=== PATIENT | male | born 1945 | race Caucasian/White ===

== ENCOUNTER → 2019-09-04 13:55 | Outpatient (BNVA) | payer MEDICARE, MEDICAID, SELFPAY | PROVIDERS: Family Provider Family Medicine; PCP Family Medicine; Referring Provider Family Medicine; Visit Provider Family Medicine | DX: R06.02 Shortness of breath (principal); Z95.1 Presence of aortocoronary bypass graft | CPT/HCPCS: 71046; 80053; 83880; 84145; 85025 ==

== ENCOUNTER 2019-10-14 06:00 | Outpatient (RCR) | payer MEDICARE, MEDICAID, SELFPAY | END 2019-10-18 23:59 | disposition home or self-care (01) | LOC: SOT 06:00 | PROVIDERS: Family Provider Family Medicine; PCP Family Medicine; Referring Provider Family Medicine; Visit Provider Family Medicine | DX: Z74.09 Other reduced mobility (principal); J44.9 Chronic obstructive pulmonary disease, unspecified; Z95.5 Presence of coronary angioplasty implant and graft; I25.10 Atherosclerotic heart disease of native coronary artery without angina pectoris; I50.9 Heart failure, unspecified; Z95.3 Presence of xenogenic heart valve | CPT/HCPCS: 97167; 97530 ==

== ENCOUNTER 2020-07-07 12:03 | Outpatient (CLI) | payer MEDICARE, MEDICAID, SELFPAY ==
--- NOTE | 2020-07-07 12:45 | USCV_ITS ---
Wesley Rodrigues Age: 75 Gender: M : 1945 Exam Date: 07/07/2020 13:11 Ordering Phys: Edgard Ruelas M.D ([email or web address]) Technologist: Ayana Cope [place] [facility] [place]: SOB BP: 118 / 58 HR: 53 Rhythm: Sinus Technical Quality: Adequate MEASUREMENTS (Male / Female) Normal Values 2D ECHO LV Diastolic Diameter PLAX 2.9 cm 4.2 - 5.9 / 3.9 - 5.3 cm LV Systolic Diameter PLAX 1.7 cm LV Chamber Size 3.3 cm IVS Diastolic Thickness 1.6 cm 0.6 - 1.0 / 0.6 - 0.9 cm IVS Systolic Thickness 2.1 cm LVPW Diastolic Thickness 2.3 cm 0.6 - 1.0 / 0.6 - 0.9 cm LVPW Systolic Thickness 2.2 cm RV Chamber Size 2.5 cm LVOT Diameter 2.0 cm LV Ejection Fraction 2D Teich 76.8 % LV Ejection Fraction MOD 2C 51.3 % LV Ejection Fraction 2C AL 53.4 % LA Diameter 4.3 cm LA Width 3.5 cm LA Height 5.5 cm RA Width 4.4 cm RA Height 3.8 cm M-MODE LV Diastolic Diameter MM 6.0 cm 4.2 - 5.9 / 3.9 - 5.3 cm LV Systolic Diameter MM 4.7 cm LV Ejection Fraction MM Teich 43.2 % IVS Diastolic Thickness MM 1.1 cm 0.6 - 1.0 / 0.6 - 0.9 cm IVS Systolic Thickness MM 1.5 cm LVPW Diastolic Thickness MM 1.2 cm 0.6 - 1.0 / 0.6 - 0.9 cm LVPW Systolic Thickness MM 1.4 cm Aortic Annulus Diameter 2.4 cm LA Ao Ratio MM 2.0 MV E Point Septal Separation 0.5 cm DOPPLER AV Peak Velocity 177.0 cm/s LVOT Peak Velocity 108.0 cm/s AV Area Cont Eq vti 2.1 cm squared AV Area Cont Eq pk 2.0 cm squared MV Area PHT 2.1 cm squared Mitral E to A Ratio 0.9 MV E' Velocity 63.0 cm/s Mitral E to MV E' Ratio 18.1 Mitral E to LV E' Lateral Ratio 16.8 Mitral E to LV E' Septal Ratio 19.5 TR Peak Velocity 136.0 cm/s TR Peak Gradient 7.4 mmHg Right Atrial Pressure 3.0 mmHg Pulmonary Artery Systolic Pressu 10.4 mmHg PV Peak Velocity 77.0 cm/s RV Acceleration Time 0.1 s RV Ejection Time 0.4 s RV AcT/ET 0.3 FINDINGS Left Ventricle Normal left ventricular size and systolic function with no regional wall motion abnormalities. LVEF is 50 to 55%. Grade 1 diastolic dysfunction is present. Right Ventricle The right ventricle is normal in size and function. Right Atrium The right atrium is normal in size. Left Atrium The left atrium is normal in size. Mitral Valve Mild mitral annular calcification is noted. No significant stenosis is present. There is no mitral regurgitation. Aortic Valve There is a bioprosthetic aortic valve. It is not well- visualized. There is no significant aortic stenosis or regurgitation noted. Tricuspid Valve Structurally normal tricuspid valve without significant stenosis or regurgitation. Insufficient TR jet to calculate RVSP. Pulmonic Valve Structurally normal pulmonic valve without significant stenosis. There is no pulmonic regurgitation. Pericardium Normal pericardium without effusion. Aorta Normal ascending aorta dimension. CONCLUSIONS LV systolic function is normal with a EF of 50 to 55%. Grade 1 diastolic dysfunction is noted. Bioprosthetic aortic valve is not well-visualized. However based on Doppler data, no significant stenosis or regurgitation is noted. Compared to prior study from 04/12/2018, no significant changes are noted. Edgard Ruelas MD (Electronically Signed) Final Date: 18 July 2020 16:19 S
== END 2020-07-07 12:04 | disposition home or self-care (01) ==
LOC: RAD 12:16
PROVIDERS: PCP Family Medicine Adult Medicine; Visit Provider Internal Medicine
DX: R06.02 Shortness of breath (principal)
CPT/HCPCS: 93306

== ENCOUNTER → 2020-07-08 11:07 | Outpatient (BNVA) | payer MEDICARE, MEDICAID, SELFPAY | PROVIDERS: PCP Family Medicine Adult Medicine; Visit Provider Family Medicine Adult Medicine | DX: I25.5 Ischemic cardiomyopathy (principal); E66.9 Obesity, unspecified; I48.91 Unspecified atrial fibrillation; N18.9 Chronic kidney disease, unspecified; I50.9 Heart failure, unspecified; Z95.1 Presence of aortocoronary bypass graft; I25.10 Atherosclerotic heart disease of native coronary artery without angina pectoris; J44.9 Chronic obstructive pulmonary disease, unspecified; I13.0 Hypertensive heart and chronic kidney disease with heart failure and stage 1 through stage 4 chronic kidney disease, or unspecified chronic kidney disease; Z68.31 Body mass index [BMI] 31.0-31.9, adult; F17.211 Nicotine dependence, cigarettes, in remission | CPT/HCPCS: 80053; 80061; 84153; 84443; 85025 ==

== ENCOUNTER → 2020-12-02 11:18 | Outpatient (BNVA) | payer MEDICARE, MEDICAID, SELFPAY | PROVIDERS: PCP Family Medicine Adult Medicine; Visit Provider Family Medicine Adult Medicine | DX: J44.9 Chronic obstructive pulmonary disease, unspecified (principal); E78.5 Hyperlipidemia, unspecified; I50.9 Heart failure, unspecified; N18.9 Chronic kidney disease, unspecified; I25.10 Atherosclerotic heart disease of native coronary artery without angina pectoris; I13.0 Hypertensive heart and chronic kidney disease with heart failure and stage 1 through stage 4 chronic kidney disease, or unspecified chronic kidney disease | CPT/HCPCS: 80053; 80061; 85025 ==

== ENCOUNTER → 2021-05-18 09:49 | Outpatient (BNVA) | payer MEDICARE, MEDICAID, SELFPAY | PROVIDERS: PCP Family Medicine Adult Medicine; Visit Provider Nurse Practitioner Family | DX: I25.10 Atherosclerotic heart disease of native coronary artery without angina pectoris (principal); I25.5 Ischemic cardiomyopathy; R06.02 Shortness of breath | CPT/HCPCS: 80048; 83880 ==

== ENCOUNTER → 2021-06-16 08:29 | Outpatient (BNVA) | payer MEDICARE, MEDICAID, SELFPAY | PROVIDERS: PCP Family Medicine Adult Medicine; Visit Provider Family Medicine Adult Medicine | DX: J43.9 Emphysema, unspecified (principal); I50.9 Heart failure, unspecified; N18.30 Chronic kidney disease, stage 3 unspecified; R79.89 Other specified abnormal findings of blood chemistry; I13.0 Hypertensive heart and chronic kidney disease with heart failure and stage 1 through stage 4 chronic kidney disease, or unspecified chronic kidney disease | CPT/HCPCS: 80053; 83880; 84443; 85025 ==

== ENCOUNTER 2021-08-17 13:33 | Outpatient (CLI) | payer MEDICARE, MEDICAID, SELFPAY ==
--- NOTE | 2021-08-17 14:15 | USCV_ITS ---
Ravi Wesley Age: 76 Gender: M : 1945 Exam Date: 08/17/2021 14:24 Ordering Phys: Edgard Ruelas M.D ([email or web address]) Technologist: An Gan [place] [facility] [place]: PRESENCE OF XENOGENIC HEART VALVE BP: 140 / 70 HR: 61 Rhythm: Sinus Technical Quality: Technically difficult study MEASUREMENTS (Male / Female) Normal Values 2D ECHO LV Diastolic Diameter PLAX 5.3 cm 4.2 - 5.9 / 3.9 - 5.3 cm LV Systolic Diameter PLAX 3.5 cm IVS Diastolic Thickness 1.3 cm 0.6 - 1.0 / 0.6 - 0.9 cm IVS Systolic Thickness 1.9 cm LVPW Diastolic Thickness 1.9 cm 0.6 - 1.0 / 0.6 - 0.9 cm LVPW Systolic Thickness 2.2 cm LVOT Diameter 2.0 cm LV Ejection Fraction 2D Teich 61.3 % LV Ejection Fraction MOD 2C 57.7 % LV Ejection Fraction 2C AL 57.5 % LA Diameter 4.3 cm LA Width 3.6 cm LA Height 5.4 cm RA Width 3.8 cm RA Height 3.9 cm Aorta at Sinotubular Diameter 1.7 cm M-MODE Aortic Annulus Diameter 2.7 cm LA Ao Ratio MM 1.5 MV E Point Septal Separation 1.1 cm DOPPLER AV Peak Velocity 196.7 cm/s LVOT Peak Velocity 83.0 cm/s AV Area Cont Eq vti 1.3 cm squared AV Area Cont Eq pk 1.3 cm squared MV Peak Velocity 140.0 cm/s MV Area PHT 3.5 cm squared Mitral E to A Ratio 0.9 MV E' Velocity 59.5 cm/s Mitral E to MV E' Ratio 18.9 Mitral E to LV E' Lateral Ratio 18.9 Mitral E to LV E' Septal Ratio 18.9 TV Peak E Velocity 37.0 cm/s Right Atrial Pressure 3.0 mmHg PV Peak Velocity 94.0 cm/s RV Acceleration Time 0.1 s RV Ejection Time 0.3 s RV AcT/ET 0.4 FINDINGS Left Ventricle Normal left ventricular size. LV systolic function is normal with EF of 50 to 55%. No regional wall motion abnormalities. Grade 1 diastolic dysfunction Right Ventricle Not well visualized Right Atrium Grossly normal Left Atrium The left atrium is normal in size. Mitral Valve Mild mitral annular calcification is seen without significant stenosis or prolapse. There is mild mitral regurgitation. Aortic Valve There is a bioprosthetic aortic valve which is not well- visualized. Based on Doppler data there is no significant aortic stenosis or regurgitation. DVI of aortic valve is 0.42 Tricuspid Valve Grossly normal without significant regurgitation or stenosis Pulmonic Valve Not visualized Pericardium Normal pericardium without effusion. Aorta Normal ascending aorta dimension. CONCLUSIONS Technically difficult technically limited quality echocardiogram because of poor ultrasonic windows. LV systolic function is normal with EF 50 to 55%. Grade 1 diastolic dysfunction. Mild mitral regurgitation. Bioprosthetic aortic valve is not well-visualized. Based on Doppler data no significant aortic stenosis or regurgitation. Degree of aortic valve is 0.42. Compared to prior echocardiogram from 07/18/2020, no significant changes are seen. Edgard Ruelas MD (Electronically Signed) Final Date: 18 August 2021 11:23 S
== END 2021-08-17 13:34 | disposition home or self-care (01) ==
LOC: RAD 13:36
PROVIDERS: PCP Family Medicine Adult Medicine; Visit Provider Internal Medicine
DX: Z95.3 Presence of xenogenic heart valve (principal); I34.0 Nonrheumatic mitral (valve) insufficiency
CPT/HCPCS: 93306

== ENCOUNTER → 2021-12-13 13:33 | Outpatient (BNVA) | payer MEDICARE, MEDICAID, SELFPAY | PROVIDERS: PCP Family Medicine Adult Medicine; Visit Provider Internal Medicine | DX: R06.09 Other forms of dyspnea (principal); I13.0 Hypertensive heart and chronic kidney disease with heart failure and stage 1 through stage 4 chronic kidney disease, or unspecified chronic kidney disease; N18.30 Chronic kidney disease, stage 3 unspecified; I50.9 Heart failure, unspecified; N17.9 Acute kidney failure, unspecified; I25.119 Atherosclerotic heart disease of native coronary artery with unspecified angina pectoris; Z87.891 Personal history of nicotine dependence; Z95.3 Presence of xenogenic heart valve; Z95.1 Presence of aortocoronary bypass graft; I25.5 Ischemic cardiomyopathy | CPT/HCPCS: 99214 ==

== ENCOUNTER 2022-06-28 09:08 | Outpatient (CLI) | payer MEDICARE, MEDICAID, SELFPAY ==
[2022-06-28 10:00] VITALS: BMI 30.7
--- NOTE | 2022-06-28 10:00 | ECG_ITS ---
[facility] Test Date: 2022-06-28 Pat Name: Wesley Rodrigues Department: Room: Gender: Male [place] Man: : 1945 Requested By: Edgard Ruelas Order Number: [id number] Peter MD: José Antonio Branch M.D. Interpretive Statements NAME OF STUDY: LEXISCAN SESTAMIBI STRESS TEST INDICATION: Shortness of Breath RESULTS TO DR RUELAS PROCEDURE: At the baseline, the EKG revealed sinus rhythm with a heart rate of 62 bpm. 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 Some nonspecific T wave changes. Right bundle branch block. The baseline heart was 68 bpm with a blood pressue of 170/89 mm of Hg Lexiscan was infused over a period of 20 seconds. A total of 0.4 milligrams of Lexiscan was infused. The stress phase was continued for a total of 5 minutes. Heart rate at the end of the stress phase was 76 bpm with a blood pressure 142/81 mm of Hg. The EKG at the peak infusion revealed no significant changes. Sestamibi was injected 20 seconds after the Lexiscan infusion. Heart rate at the end of the recovery phase was 78 bpm with a blood pressure of 125/72 mm of Hg. CONCLUSION: 1. No significant EKG changes with the LexiScan infusion 2. No LexiScan induced chest pain or cardiac arrhythmia 3. Normal blood pressure and heart rate response 4. Sestamibi/sestamibi perfusion scan pending; see separate report. Electronically Signed On 06-30-2022 9:04:59 REPORT CLERK by José Antonio Branch M.D. [id number]
--- NOTE | 2022-06-28 10:01 | NMCV_ITS ---
NM donato perf SPECT r/s* [id number] Wesley Rodrigues Age: 77 Gender: M : 1945 Exam Date: 06/28/2022 10:01 Ordering Phys: Edgard Ruelas M.D ([email or web address]) Technologist: JOCELYNN Cole Exam Location: [facility] [place] Indications: SHORTNESS OF BREATH STRESS TEST Please see separate stress test report in [facility] for full findings IMAGE PROTOCOL Rest/Stress 1 Lexiscan Day Radiopharmaceutical Dose (mCi) Administration Site Administered by Rest: Tc-99m 9.4 IV JOCELYNN Ospina Sestamibi Stress:Tc-99m 26.7 IV JOCELYNN Ospina Sestamibi Rest: 28-Jun-2022 60 Discovery 630 Stress: 28-Jun-2022 30 Discovery 630 0.4mg Lexiscan. Supine position only as patient was unable to lay prone. SPECT RESULTS Technical Quality: Excellent Raw Data Analysis: Normal Image Corrections: No attenuation or motion correction applied Summed Stress Score: 19 Summed Rest Score: 10 Summed Difference Score: 9 PERFUSION FINDINGS Medium sized perfusion abnormality of basal to apical inferior, mid inferoseptal, apical septal and apical lateral arteaga on rest images with mild reversibility in basal to mid infero-septal, mid inferolateral, apical lateral and apical inferior arteaga on stress images. FUNCTIONAL RESULTS (calculated via Gated SPECT) Stress Image LV EF (%): 59 Stress EDV (mL):105 TID: 1.09 Stress ESV (mL):43 FUNCTIONAL FINDINGS: The left ventricle is normal in size. Transient Ischemia Dilatation of 1.1. The left ventricular ejection fraction is normal with a value of 59%. There is possible hypokinesis of mid to apical inferior arteaga. Normal end diastolic and end systolic volumes. IMPRESSIONS 1. Medium sized partially perfusion abnormality of basal to apical inferior, mid inferoseptal, mid inferolateral, apical septal, apical inferior and apical lateral arteaga. 2. 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 3. The left ventricular ejection fraction is normal with a value of 59%. 4. There is possible hypokinesis of mid to apical inferior artegaa. 5. EKG portion of the study will be reported separately. Sammie Silveira MD (Electronically Signed) Final Date: 07 July 2022 13:49 S
[2022-06-28] MEDS: regadenoson 0.4 Mg/5 ml Syringe IVP (12:19)
[2022-06-28 12:31] VITALS: BP 125/72; PULSE 77
== END 2022-06-28 09:09 | disposition home or self-care (01) ==
LOC: CDL 09:12
PROVIDERS: PCP Family Medicine Adult Medicine; Visit Provider Internal Medicine
DX: R06.02 Shortness of breath (principal)
CPT/HCPCS: 36415; 78452; 93017; A9500; J2785

== ENCOUNTER → 2022-07-10 14:30 | Outpatient (BNVA) | payer MEDICARE, MEDICAID, SELFPAY | PROVIDERS: PCP Family Medicine Adult Medicine; Visit Provider Internal Medicine | DX: R53.83 Other fatigue (principal); R00.2 Palpitations; R42 Dizziness and giddiness; I25.5 Ischemic cardiomyopathy; Z95.1 Presence of aortocoronary bypass graft; I25.119 Atherosclerotic heart disease of native coronary artery with unspecified angina pectoris; Z95.3 Presence of xenogenic heart valve; I13.0 Hypertensive heart and chronic kidney disease with heart failure and stage 1 through stage 4 chronic kidney disease, or unspecified chronic kidney disease; N18.30 Chronic kidney disease, stage 3 unspecified; I50.9 Heart failure, unspecified | CPT/HCPCS: 99214 ==

== ENCOUNTER → 2022-09-29 14:34 | Outpatient (BNVA) | payer MEDICARE, MEDICAID, SELFPAY | PROVIDERS: PCP Family Medicine Adult Medicine; Visit Provider Family Medicine Adult Medicine | DX: N18.30 Chronic kidney disease, stage 3 unspecified (principal); I10 Essential (primary) hypertension; R79.89 Other specified abnormal findings of blood chemistry; J43.9 Emphysema, unspecified; E78.5 Hyperlipidemia, unspecified; J30.9 Allergic rhinitis, unspecified; I50.9 Heart failure, unspecified; Z87.891 Personal history of nicotine dependence; I25.119 Atherosclerotic heart disease of native coronary artery with unspecified angina pectoris; Z95.3 Presence of xenogenic heart valve; I48.91 Unspecified atrial fibrillation | CPT/HCPCS: 80053; 84443; 85025 ==

== ENCOUNTER → 2023-01-02 12:45 | Outpatient (BNVA) | payer MEDICARE, MEDICAID, SELFPAY | PROVIDERS: PCP Family Medicine Adult Medicine; Visit Provider Internal Medicine | DX: I13.0 Hypertensive heart and chronic kidney disease with heart failure and stage 1 through stage 4 chronic kidney disease, or unspecified chronic kidney disease (principal); N18.30 Chronic kidney disease, stage 3 unspecified; I50.9 Heart failure, unspecified; Z87.891 Personal history of nicotine dependence; I25.119 Atherosclerotic heart disease of native coronary artery with unspecified angina pectoris; I48.91 Unspecified atrial fibrillation; Z95.3 Presence of xenogenic heart valve; Z95.1 Presence of aortocoronary bypass graft; R53.83 Other fatigue; R00.2 Palpitations; R42 Dizziness and giddiness; I25.5 Ischemic cardiomyopathy | CPT/HCPCS: 36415; 80048; 83880; 99214 ==

== ENCOUNTER 2023-01-23 06:37 | Outpatient (CLI) | payer MEDICARE, MEDICAID, SELFPAY ==
--- NOTE | 2023-01-23 07:00 | USCV_ITS ---
Wesley Rodrigues Age: 77 Gender: M : 1945 Exam Date: 01/23/2023 06:54 Ordering Phys: Edgard Ruelas M.D ([email or web address]) Technologist: Vicenta Watkins [place] [facility] [place]: Replaced AO valve BP: 140 / 70 HR: 54 Rhythm: Sinus Technical Quality: Adequate MEASUREMENTS (Male / Female) Normal Values 2D ECHO LV Diastolic Diameter PLAX 4.8 cm 4.2 - 5.9 / 3.9 - 5.3 cm LV Systolic Diameter PLAX 2.8 cm LV Chamber Size 3.6 cm IVS Diastolic Thickness 1.0 cm 0.6 - 1.0 / 0.6 - 0.9 cm IVS Systolic Thickness 1.3 cm LVPW Diastolic Thickness 1.3 cm 0.6 - 1.0 / 0.6 - 0.9 cm LVPW Systolic Thickness 1.1 cm RV Chamber Size 3.4 cm LVOT Diameter 2.0 cm LV Ejection Fraction 2D Teich 73.9 % LV Ejection Fraction MOD 2C 52.1 % LV Ejection Fraction 2C AL 56.9 % LA Diameter 3.9 cm LA Width 4.0 cm LA Height 5.2 cm RA Width 4.5 cm RA Height 3.8 cm Aorta at Sinotubular Diameter 2.5 cm IVC Diameter 2.5 cm M-MODE Aortic Annulus Diameter 3.0 cm LA Ao Ratio MM 1.7 MV E Point Septal Separation 1.1 cm DOPPLER AV Peak Velocity 186.0 cm/s LVOT Peak Velocity 64.0 cm/s AV Area Cont Eq vti 1.3 cm squared AV Area Cont Eq pk 1.1 cm squared MV Peak Velocity 135.0 cm/s MV Area PHT 2.9 cm squared Mitral E to A Ratio 0.8 MV E' Velocity 57.5 cm/s Mitral E to MV E' Ratio 14.1 Mitral E to LV E' Lateral Ratio 20.0 Mitral E to LV E' Septal Ratio 10.9 TR Peak Velocity 139.7 cm/s TR Peak Gradient 7.8 mmHg TR Mean Velocity 97.0 cm/s TR Mean Gradient 4.2 mmHg TR Velocity Time Integral 40.8 cm TV Peak E Velocity 80.0 cm/s Right Atrial Pressure 3.0 mmHg Pulmonary Artery Systolic Pressu 10.8 mmHg RV Acceleration Time 0.1 s RV Ejection Time 0.3 s RV AcT/ET 0.3 FINDINGS Left Ventricle Left ventricle is normal in size. LV systolic function is normal with EF of 50 to 55%. No regional wall motion abnormalities are seen. Grade 1 diastolic dysfunction Right Ventricle Normal in size and function Right Atrium Normal in size Left Atrium Normal size Mitral Valve Moderate mitral annular calcification. Mild mitral regurgitation Aortic Valve Not well-visualized. No significant stenosis. Tricuspid Valve Trace tricuspid regurgitation. Insufficient TR jet to calculate RVSP Pulmonic Valve Mild pulmonic regurgitation Pericardium Grossly normal Aorta Normal in size IVC Not well visualized CONCLUSIONS LV systolic function is normal with EF of 50 to 55%. Grade 1 diastolic dysfunction Moderate mitral annular calcification. Mild mitral regurgitation Trace tricuspid regurgitation Mild pulmonic regurgitation Compared to prior echocardiogram from 2020, no significant changes are noted. Edgard Ruelas MD (Electronically Signed) Final Date: 27 January 2023 14:15 S
== END 2023-01-23 06:38 | disposition home or self-care (01) ==
LOC: RAD 06:39
PROVIDERS: PCP Family Medicine Adult Medicine; Visit Provider Internal Medicine
DX: I35.0 Nonrheumatic aortic (valve) stenosis (principal); I34.0 Nonrheumatic mitral (valve) insufficiency; I34.81 Nonrheumatic mitral (valve) annulus calcification; I37.1 Nonrheumatic pulmonary valve insufficiency
CPT/HCPCS: 36415; 80048; 83880; 93306; 99214

== ENCOUNTER → 2023-10-09 08:02 | Outpatient (BNVA) | payer MEDICARE, MEDICAID, SELFPAY | PROVIDERS: PCP Family Medicine Adult Medicine; Visit Provider Family Medicine Adult Medicine | DX: N18.30 Chronic kidney disease, stage 3 unspecified (principal); I10 Essential (primary) hypertension; I50.9 Heart failure, unspecified; E78.5 Hyperlipidemia, unspecified; R79.89 Other specified abnormal findings of blood chemistry; J43.9 Emphysema, unspecified | CPT/HCPCS: 80053; 80061; 84443; 85025 ==

== ENCOUNTER → 2023-10-22 12:59 | Outpatient (BNVA) | payer MEDICARE, MEDICAID, SELFPAY | PROVIDERS: PCP Family Medicine Adult Medicine; Visit Provider Internal Medicine | DX: R53.83 Other fatigue (principal); R00.2 Palpitations; R42 Dizziness and giddiness; I13.0 Hypertensive heart and chronic kidney disease with heart failure and stage 1 through stage 4 chronic kidney disease, or unspecified chronic kidney disease; N18.30 Chronic kidney disease, stage 3 unspecified; I50.9 Heart failure, unspecified; I25.5 Ischemic cardiomyopathy; Z95.1 Presence of aortocoronary bypass graft; I25.119 Atherosclerotic heart disease of native coronary artery with unspecified angina pectoris; Z95.3 Presence of xenogenic heart valve | CPT/HCPCS: 99214 ==

== ENCOUNTER 2024-03-24 07:36 | Outpatient (CLI) | payer MEDICARE, MEDICAID, SELFPAY ==
--- NOTE | 2024-03-24 08:00 | USCV_ITS ---
Wesley Rodrigues Age: 79 Gender: M : 1945 Exam Date: 03/24/2024 08:08 Ordering Phys: Edgard Ruelas M.D ([email or web address]) Technologist: Exam Location: [facility] – [place] Indication: av pros BP: 125 / 75 HR: 220 Rhythm: Sinus Technical Quality: Adequate MEASUREMENTS (Male / Female) Normal Values 2D ECHO LV Diastolic Diameter PLAX 4.9 cm 4.2 - 5.9 / 3.9 - 5.3 cm IVS Diastolic Thickness 1.3 cm 0.6 - 1.0 / 0.6 - 0.9 cm IVS Systolic Thickness 1.6 cm LVPW Diastolic Thickness 1.4 cm 0.6 - 1.0 / 0.6 - 0.9 cm LVPW Systolic Thickness 1.5 cm LVOT Diameter 2.0 cm LV Ejection Fraction 2D Teich 46.5 % LV Ejection Fraction MOD 4C 64.6 % LV Ejection Fraction MOD 2C 59.6 % LV Ejection Fraction 2C AL 60.5 % LA Diameter 4.0 cm RA Systolic Volume 4C AL 25.6 ml RA Systolic Volume 4C MOD 12.9 ml LA Sys Volume AL 71.1 cm cubed LA Sys Volume Index AL 30.7 cm cubed/m squared Aorta at Sinotubular Diameter 3.0 cm IVC Diameter 2.8 cm M-MODE LA Ao Ratio MM 1.5 AV Cusp Separation MM 2.5 cm DOPPLER AV Peak Velocity 138.0 cm/s LVOT Peak Velocity 74.0 cm/s AV Area Cont Eq vti 2.5 cm squared AV Area Cont Eq pk 1.8 cm squared MV Peak Velocity 141.0 cm/s MV Area PHT 2.7 cm squared Mitral E to A Ratio 0.9 TR Peak Velocity 141.0 cm/s TR Peak Gradient 8.0 mmHg TV Peak E Velocity 85.0 cm/s Right Atrial Pressure 3.0 mmHg Pulmonary Artery Systolic Pressu 11.0 mmHg PV Peak Velocity 95.0 cm/s FINDINGS Left Ventricle Left ventricle is normal size. LV systolic function is normal with EF of 55 to 60%. No regional wall motion abnormalities are seen Right Ventricle Normal in size and function. Right Atrium Normal in size. Left Atrium Normal in size. Mitral Valve Mild mitral annular calcification. Mild mitral regurgitation Aortic Valve Bioprosthetic aortic valve is seen. No significant stenosis. Tricuspid Valve Mild tricuspid regurgitation. Insufficient TR jet to calculate RVSP. Pulmonic Valve Mild pulmonic regurgitation. Pericardium Normal Aorta Normal in size IVC Not well visualized CONCLUSIONS LV systolic function is normal with EF 55 to 60%. Mild mitral regurgitation Bioprosthetic arctic valve is seen. No significant gradient across the valve. Mild tricuspid regurgitation Mild pulmonic regurgitation Compared to prior echocardiogram from 2022, no significant changes are seen. Edgard Ruelas MD (Electronically Signed) Final Date: 07 April 2024 18:09 S
== END 2024-03-24 07:37 | disposition home or self-care (01) ==
LOC: RAD 07:37
PROVIDERS: PCP Family Medicine Adult Medicine; Visit Provider Internal Medicine
DX: Z95.3 Presence of xenogenic heart valve (principal); Z95.1 Presence of aortocoronary bypass graft
CPT/HCPCS: 93306

== ENCOUNTER → 2024-05-22 09:26 | Outpatient (BNVA) | payer MEDICARE, MEDICAID, SELFPAY | PROVIDERS: PCP Family Medicine Adult Medicine; Visit Provider Internal Medicine | DX: R53.83 Other fatigue (principal); R00.2 Palpitations; R42 Dizziness and giddiness; I25.5 Ischemic cardiomyopathy; Z95.1 Presence of aortocoronary bypass graft; I13.0 Hypertensive heart and chronic kidney disease with heart failure and stage 1 through stage 4 chronic kidney disease, or unspecified chronic kidney disease; I50.9 Heart failure, unspecified; N18.9 Chronic kidney disease, unspecified; I25.119 Atherosclerotic heart disease of native coronary artery with unspecified angina pectoris; Z95.3 Presence of xenogenic heart valve | CPT/HCPCS: 99214 ==

== ENCOUNTER 2024-09-03 06:32 | Emergency (ER) | payer MEDICARE, MEDICAID, SELFPAY ==
[2024-09-03] VITALS (7 sets, daily range): BP systolic 152–180; BP diastolic 66–78; PULSE 54–65; RESP 16–20; TEMP 36.7; O2SAT 94–99
--- NOTE | 2024-09-03 06:33 | ECG_ITS ---
[facility] Test Date: 2024-09-03 Pat Name: Wesley Rodrigues Department: Room: Gender: Male [employer]: : 1945 Requested By: Rodolfo Gonzales Order Number: [id number] Reading MD: DEYVI GONZALEZ Measurements Intervals Leroy Rate: 53 P: 60 NH: 202 QRS: 79 QRSD: 147 T: 57 QT: 441 QTc: 417 Interpretive Statements SINUS BRADYCARDIA RIGHT BUNDLE BRANCH BLOCK [120+ ms QRS DURATION, UPRIGHT V1, 40+ ms S IN I/aVL/V4/V5/V6] No previous ECG available for comparison Electronically Signed On 09-05-2024 23:30:30 [employer]AL [employer] PROVIDER by DEYVI GONZALEZ [id number]
--- NOTE | 2024-09-03 06:33 | CTR_ITS ---
PROCEDURE INFORMATION: Exam: CT Head Without Contrast Exam date and time: 09/03/2024 6:36 AM Age: 79 years old Clinical indication: Stroke-like symptoms; RT upper extremity and RT lower extremity weakness; Additional info: Symptoms of acute stroke TECHNIQUE: Imaging protocol: Computed tomography of the head without contrast. Radiation optimization: All CT scans at this facility use at least one of these dose optimization techniques: automated exposure control; mA and/or kV adjustment per patient size (includes targeted exams where dose is matched to clinical indication); or iterative reconstruction. Other technique: STROKE PROTOCOL was implemented. COMPARISON: No relevant prior studies available. RADIATION DOSE METRICS: Total DLP (mGy-cm): 1017.89 FINDINGS: Brain: There is moderate cerebral atrophy. Left occipital lobe encephalomalacia. Negative for hemorrhage. Negative for mass. Negative for midline shift of the brain. No acute ischemia visualized. Cerebral ventricles: No ventriculomegaly. Paranasal sinuses: Right sphenoid sinus mostly opacified. Mastoid air cells: Visualized mastoid air cells are well aerated. Bones: Unremarkable. No acute fracture. Soft tissues: Unremarkable. CT/CT head thrombolytic [id number] IMPRESSION: Negative for acute intracranial pathology. ASSESSMENT: ASPECTS ([place] Stroke Program Early CT Score) is 10.
--- NOTE | 2024-09-03 06:34 | W.ED.NEUROSD ---
HPI - Neuro Symptoms/Deficit General: Chief Complaint: Neuro Symptoms/Deficit Stated Complaint: possible stroke Time Seen by Provider: 09/03/24 06:33 History of Present Illness: 79-year-old male presents emergency room with a complaint of sudden onset of right sided arm and leg weakness. Began around 545 this morning. He had woken up around 3 he went to put on his shirt and had difficulty with arm and noticed his leg was dragging. He has had 2 previous strokes in the past EMS was called at time EMS result arrived his symptoms had completely resolved. On arrival here stroke alert was called he has a NIH score of 0. During the course of the NIH score after we do about finished I asked him to stand to check his balance patient began to playfully dance at the bedside with no difficulty maintaining his balance. Patient previously has had coronary artery disease of bypass and states he has 4 stents in addition to this he has had 2 stroke he is on aspirin and atorvastatin but he is not taking Plavix because he had excessive bruising and was ultimately taken off of it Associated symptoms: Deny chest pain Related Data Home Medications Medication Instructions Recorded Confirmed acetaminophen 650 mg 1,300 mg PO Q8H 07/10/22 09/03/24 tablet,extended release (Tylenol 8 Hour) furosemide 40 mg tablet 40 mg PO DAILY 09/03/24 09/03/24 metoprolol tartrate 50 mg tablet 50 mg PO BID 09/03/24 09/03/24 Previous Rx's Medication Instructions Recorded aspirin 325 mg tablet 325 mg PO QDAY #100 tabs 12/02/20 oxygen and supplies. #1 ea 05/19/21 montelukast 10 mg tablet 10 mg PO DAILY COPD #90 tabs 10/09/23 (Singulair) atorvastatin 40 mg tablet 40 mg PO DAILY #90 tabs 04/01/24 amlodipine 5 mg tablet 7.5 mg (1.5 x 5 mg) PO DAILY #90 09/03/24 tabs Allergies Allergy/AdvReac Type Severity Reaction Status Date / Time hydrocodone Allergy Mild vomit Verified 09/03/24 06:47 codeine AdvReac Mild sleepiness Verified 09/03/24 06:47 Review of Systems Const: Denies: fever(s) or chills Card: Denies: chest pain Resp: Denies: dyspnea GI: Denies: abdominal pain : Denies: dysuria, urinary frequency or urinary urgency Musc: Denies: neck pain or back pain Skin/Breast: Denies: rash PFSH ED PFSH: Medical History Elevated TSH Former smoker, stopped smoking in distant past smoked 45 years quit 2005 Allergic rhinitis due to allergen Chronic right shoulder pain 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 PFT: FVC 42%, FeV1 32%, 25-75 13%, Severe COPD with restriction CKD (chronic kidney disease) stage 3, GFR 30-59 ml/min 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 Hyperlipemia Enrolled in chronic care management Obesity (BMI 30.0-34.9) History of stroke Superior mesenteric artery stenosis Atrial fibrillation Essential hypertension CAD (coronary artery disease) History of CABG, stents, remote ND's, aortic valve replacement with bioprosthesis valve CHF (congestive heart failure), NYHA class II Surgical History Hx of CABG Stented coronary artery History of aortic valve replacement with bioprosthetic valve Family History Other CAD (coronary artery disease) Dementia Enrolled in chronic care management Hyperlipidemia Hypertension Lung disease Social History Smoking and tobacco/nicotine status: former use of tobacco/nicotine Second hand smoke exposure: Yes Alcohol intake: former Substance/Drug Use: never Adopted: No Caregiver/support person: No Lives independently: Yes Household members: spouse Marital status: Current occupational status: retired Current gender identity: Male NIH stroke score NIHSS: Level Of Consciousness - 1a: 0 Level Of Consciousness Questions - 1b: Both Correct Level Of Consciousness Commands - 1c: Both Correct Best Gaze - 2: Normal Visual Zamora - 3: No Visual Loss Facial Palsy - 4: Normal Motor Arm Right - 5: No Drift Motor Arm Left - 5: No Drift Motor Leg Right - 6: No Drift Motor Leg Left - 6: No Drift Limb Ataxia - 7: Absent Sensory - 8: Normal Best Language - 9: No Aphasia Dysarthia - 10: Normal Extinction And Inattention - 11: 0 Score: Total Score: 0 Physical Exam Const: COMMON NORMALS: no acute distress GENERAL APPEARANCE: cooperative and comfortable ORIENTATION/CONSCIOUSNESS: Yes awake, Yes oriented to person, Yes oriented to place and Yes oriented to time HENMT: COMMON NORMALS: normocephalic, atraumatic and hearing grossly normal bilaterally HEAD & SCALP: normocephalic and atraumatic Resp: COMMON NORMALS: normal respiratory effort, No retractions, No use of accessory muscles and clear to auscultation bilaterally AUSCULTATION: clear to auscultation bilaterally Cardio: COMMON NORMALS: regular rate, regular rhythm and No murmurs present (Cardio) RATE: regular rate RHYTHM: regular rhythm GI: COMMON NORMALS: Soft to palpation and No hepatosplenomegaly present AUSCULTATION: Yes normoactive bowel sounds PALPATION: Yes Soft to palpation, No Tenderness to palpation present (GI), No Guarding due to palpation present (GI) and Yes No hepatosplenomegaly present Extremity: COMMON NORMALS: normal to inspection, capillary refill normal, no clubbing, cyanosis or edema, no calf tenderness and no pedal edema Neuro: SENSORIUM/ORIENTATION: Yes oriented to person, Yes oriented to place and Yes oriented to time Skin: COMMON NORMALS: no rashes or lesions noted GENERAL SKIN EXAM: no rashes or lesions noted Course Vital Signs: Vital signs: Vital Signs Temperature 98.0 F 09/03/24 06:49 Pulse Rate 57 L 09/03/24 08:41 Respiratory Rate 19 H 09/03/24 08:41 Blood Pressure 169/78 09/03/24 08:41 Pulse Oximetry 94 09/03/24 08:41 Oxygen Delivery Me thod Room Air 09/03/24 06:59 MDM - Neuro Symptoms/Deficit Medical Decision Making All of his symptoms are resolved. Interestingly in the course of testing him for his NIH I had asked him to stand at the bedside to test his balance he literally started dancing at the bedside. Based on his history and reported symptoms expected did have a TIA. Unfortunately he says he is not able to take Plavix he was on it once before but they took him off of it because of excessive bruising side effects instead they placed him on full dose aspirin and atorvastatin. He feels fine and would prefer to go home I do not really have any reason to admit him at this point his symptoms have completely resolved. More aggressive therapy is not indicated at this point. We will add another 2 and half milligrams a day of amlodipine to 7.5 mg daily and have him follow-up with his primary care doctor to recheck his blood pressure in a week. Medical Records I reviewed the patient's medical records. Lab Data I reviewed the patient's lab results. 09/03/24 06:46 09/03/24 06:[address] 09/03/24 06:33 IMPRESSION: Negative for acute intracranial pathology. ASSESSMENT: ASPECTS ([place] Stroke Program Early CT Score) is 10. ADDENDUM: 09/03/2450 Findings were discussed with RODOLFO GARCIA at 09/03/2024 6:49 AM [employer]. Laboratory Results WBC 9.23 10^3/uL (3.29-11.43) 09/03/24 06:46 RBC 4.18 10^6/uL (3.85-5.65) 09/03/24 06:46 Hgb 13.00 g/dL (11.27-16.99) 09/03/24 06:46 Hct 41.0 % (37-53) 09/03/24 06:46 MCV 98.1 fl (82-101) 09/03/24 06:46 MCH 31.1 pg (27-33) 09/03/24 06:46 MCHC 31.7 g/dL (30-55) 09/03/24 06:46 RDW 13.8 % (12.1-15.1) 09/03/24 06:46 Plt Count 158 10^3/cmm (157-399) 09/03/24 06:46 MPV 10.1 fL (7.4-10.4) 09/03/24 06:46 Neut % (Auto) 72.6 % 09/03/24 06:46 Lymph % (Auto) 14.3 % 09/03/24 06:46 Haakon % (Auto) 7.7 % 09/03/24 06:46 Eos % (Auto) 4.1 % 09/03/24 06:46 Baso % (Auto) 1.0 % 09/03/24 06:46 Neut # (Auto) 6.70 10^3/uL (1.8-7.7) 09/03/24 06:46 Lymph # (Auto) 1.3 10^3/uL (0.8-4.8) 09/03/24 06:46 Haakon # (Auto) 0.7 10^3/uL (0.2-0.9) 09/03/24 06:46 Eos # (Auto) 0.4 10^3/uL (0.0-0.8) 09/03/24 06:46 Baso # (Auto) 0.1 10^3/uL (0.0-0.1) 09/03/24 06:46 Nucleated RBC % (auto) 0 % 09/03/24 06:46 Nucleated RBCs # 0.0 /100WBC 09/03/24 06:46 PT 12.40 SECONDS (12.1-14.9) 09/03/24 06:46 INR 0.87 (0.8-1.2) 09/03/24 06:46 APTT 33.3 SECONDS (23.9-36.7) 09/03/24 06:46 Sodium 140 mmol/L (136-145) 09/03/24 06:46 Potassium 5.0 mmol/L (3.5-5.1) 09/03/24 06:46 Chloride 102 mmol/L (98-107) 09/03/24 06:46 Carbon Dioxide 30 mmol/L (22-29) H 09/03/24 06:46 Anion Gap 13.0 (5-19) 09/03/24 06:46 BUN 23 mg/dL (8-23) 09/03/24 06:46 Creatinine 1.6 mg/dL (0.7-1.2) H 09/03/24 06:46 GFR Calculation Not Reportable 09/03/24 06:46 Glucose 90 mg/dL (65-115) 09/03/24 06:46 POC Glucose 86 mg/dL (70-110) 09/03/24 06:45 Calculated Osmolality 293 mOsm/kg (285-295) 09/03/24 06:46 Calcium 9.4 mg/dL (8.5-10.5) 09/03/24 06:46 Total Bilirubin 0.2 mg/dL (0.15-1.2) 09/03/24 06:46 AST 17 U/L (0-40) 09/03/24 06:46 ALT 12 U/L (0-41) 09/03/24 06:46 Alkaline Phosphatase 91 U/L (40-130) 09/03/24 06:46 Total Protein 6.8 g/dL (6.6-8.7) 09/03/24 06:46 Albumin 4.2 g/dL (3.5-5.2) 09/03/24 06:46 Globulin 2.6 g/dL (1.3-4.6) 09/03/24 06:46 Urine Color Yellow (Yellow) 09/03/24 06:55 Urine Appearance Clear (CLEAR) 09/03/24 06:55 Urine pH 5.0 (5-7) 09/03/24 06:55 Ur Specific [place] 1.010 (1.005-1.030) 09/03/24 06:55 Urine Protein Negative (Negative) 09/03/24 06:55 Urine Glucose (UA) Negative (Normal) 09/03/24 06:55 Urine Ketones Negative (Negative) 09/03/24 06:55 Urine Blood Negative (Negative) 09/03/24 06:55 Urine Nitrate Negative (Negative) 09/03/24 06:55 Urine Bilirubin Negative (Negative) 09/03/24 06:55 Urine Urobilinogen 0.2 mg/dL (Negative) 09/03/24 06:55 Ur Leukocyte Esterase Trace (Negative) A 09/03/24 06:55 Urine RBC 0-2 /hpf (0-2) 09/03/24 06:55 Urine WBC 0-5 /hpf (0-5) 09/03/24 06:55 Ur Squamous Epith Cells 0-5 /hpf (0-5) 09/03/24 06:55 Amorphous Sediment Not Reportable 09/03/24 06:55 Urine Bacteria None seen /hpf (NONE) 09/03/24 06:55 Hyaline Casts 4.52 /lpf 09/03/24 06:55 Urine Opiates Screen Negative ng/mL (Negative) 09/03/24 06:55 Ur Barbiturates Screen Negative ng/mL (Negative) 09/03/24 06:55 Ur Phencyclidine Scrn Negative ng/mL (Negative) 09/03/24 06:55 Ur Amphetamines Screen Negative ng/mL (Negative) 09/03/24 06:55 U Benzodiazepines Scrn Negative ng/mL (Negative) 09/03/24 06:55 Urine Cocaine Screen Negative ng/mL (Negative) 09/03/24 06:55 U Marijuana (THC) Screen Negative ng/mL (Negative) 09/03/24 06:55 All radiology interpretation(s) finalized by discharge Discharge Plan Discharge Patient Disposition: Home Clinical Impression: Transient cerebral ischemia Atrial fibrillation Qualifiers: Atrial fibrillation type: paroxysmal Qualified Code(s): I48.0 - Paroxysmal atrial fibrillation Condition: Stable Prescriptions: Changed amlodipine 5 mg tablet 7.5 mg PO DAILY Qty: 90 3RF No Action aspirin 325 mg tablet 325 mg PO QDAY Qty: 100 3RF (DME) oxygen and supplies. See Rx Instructions .Route .MEDSUPPLY Qty: 1 0RF Rx Instructions: As directed, 2 liters. acetaminophen [Tylenol 8 Hour] 650 mg tablet extended release 1,300 mg PO Q8H montelukast [Singulair] 10 mg tablet 10 mg PO DAILY Qty: 90 3RF atorvastatin 40 mg tablet 40 mg PO DAILY Qty: 90 1RF furosemide 40 mg tablet 40 mg PO DAILY Rx Instructions: Take 1 tablet by mouth once daily metoprolol tartrate 50 mg tablet 50 mg PO BID Discharge Orders: Discharge ED (Routine); Ordered 09/03/24 Ordered By: Rodolfo Garcia Referrals: Chuckie Cope MD [Primary Care Provider] - Discharge Diet: Usual diet Discharge Activity: Resume usual activity Patient Instructions: Opioid Safety, Pain Management Activity Restrictions/Additional Instructions: Thank you for choosing [facility] for your healthcare needs today. It is very important that you follow up as instructed or that you return to the Emergency Department should you have concerns or if your condition changes or worsens in any way. You are seen today for concerns of a possible stroke. CT of your head was negative on exam there is no sign of stroke. Based on your description of symptoms suspect that you had a TIA. Recommend you continue on the full-size aspirin and atorvastatin. Blood pressure was mildly elevated increase to 1-1/2 tablets daily of the amlodipine and follow-up with primary care doctor within a week. If you have any recurrence of symptoms return to the emergency room. Coding Level of Care Code ED Adjunct Faculty Mathematics Department for [employer]
[2024-09-03 06:56] LABS: Basophils # 0.1 10^3/uL (0.0-0.1); Eosinophils # 0.4 10^3/uL (0.0-0.8); Eosinophils % 4.1 %; Lymphocytes # 1.3 10^3/uL (0.8-4.8); Lymphocytes % 14.3 %; Mean Corpuscular HGB Conc 31.7 g/dL (30-55); Mean Corpuscular Hemoglobin 31.1 pg (27-33); Mean Corpuscular Volume 98.1 fl (82-101); Mean Platelet Volume 10.1 fL (7.4-10.4); Monocytes # 0.7 10^3/uL (0.2-0.9); Monocytes % 7.7 %; Neutrophils % 72.6 %; Nucleated Red Blood Cells % 0 %; Platelet Count 158 10^3/cmm (157-399); Red Blood Count 4.18 10^6/uL (3.85-5.65); Red Cell Distribution Width 13.8 % (12.1-15.1); White Blood Count 9.23 10^3/uL (3.29-11.43)
[2024-09-03 07:01] LABS: Glucose Point of Care 86 mg/dL (70-110)
[2024-09-03 07:07] LABS: INR 0.87 (0.8-1.2)
[2024-09-03 07:08] LABS: Partial Thromboplastin Time 33.3 SECONDS (23.9-36.7)
--- NOTE | 2024-09-03 07:12 | PC.NURSE ---
took over pt care from KARI Flores @ [phone]
[2024-09-03 07:13] LABS: Amphetamines Screen Urine Negative (Negative); Barbiturates Screen Urine Negative (Negative); Benzodiazepines Screen Urine Negative (Negative); Cocaine Screen Urine Negative (Negative); Opiate Screen Urine Negative (Negative); PCP Screen Urine Negative (Negative); THC Screen Urine Negative (Negative)
[2024-09-03 07:16] LABS: Alanine Aminotransferase 12 U/L (0-41); Albumin Level 4.2 g/dL (3.5-5.2); Alkaline Phosphatase 91 U/L (40-130); Aspartate Amino Transferase 17 U/L (0-40); Blood Urea Nitrogen 23 mg/dL (8-23); Calcium 9.4 mg/dL (8.5-10.5); Carbon Dioxide 30 mmol/L (22-29); Chloride 102 mmol/L (98-107); Globulin 2.6 g/dL (1.3-4.6); Glucose 90 mg/dL (65-115); Osmolality Calculated 293 mOsm/kg (285-295); Sodium 140 mmol/L (136-145); Total Bilirubin 0.2 mg/dL (0.15-1.2); Total Protein 6.8 g/dL (6.6-8.7)
--- NOTE | 2024-09-03 07:33 | P.CONIM_ITS ---
Providers/Reason For Consult 2 Consulting Physician/Specialty*: Rob Sears MD neurology and epilepsy Reason for Consult*: Acute care/code stroke emergency department room #12 Primary Care Provider: Chuckie Cope MD History of Present Illness History of Present Illness Wesley Rodrigues is a 79 year old male with a history of atrial fibrillation treated with aspirin, TIAs, chronic obstructive pulmonary disease with emphysema, chronic kidney disease and hypertension. The patient was on Lipitor but patient's state he discontinued the medication secondary to side effects described as severe bruising and aching. On 09/03/2024 the patient stated that he experienced acute onset of right-sided weakness while he was awake at approximately 5:45 AM on 09/03/2024. Therefore the patient presented to [facility] emergency department. Code stroke was initiated at 6:36 AM on 09/03/2024. In the emergency room the patient's symptoms resolved. NIH score= 0 Point of contact glucose Accu-Chek 86. Serum glucose 90. CBC unrevealing. Comprehensive metabolic panel revealed elevated creatinine 1.[address] 09/03/2024 reported to revealed no acute findings. Drug allergies: Lipitor which resulted in severe bruising and aching Hydrocodone which resulted in vomiting Codeine which resulted in sleeping Current medications: Aspirin 325 mg p.o. daily Tylenol 1300 mg p.o. every 8 hours Normal Norvasc 5 mg p.o. daily Lasix 40 mg p.o. daily Metoprolol 50 mg to take as directed Singulair 10 mg p.o. 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 The patient reports that he quit years ago. Family history: CAD (coronary artery disease) Dementia Enrolled in chronic care management Hyperlipidemia Hypertension Lung disease Review of Systems 2 General: Reports: 10 or more systems reviewed and unremarkable except in HPI and below Medications/Allergies Home Medications Medication Instructions Recorded Confirmed Last Taken Type aspirin 325 mg tablet 325 mg PO QDAY #100 tabs 12/02/20 09/03/24 Unknown Rx oxygen and supplies. #1 ea 05/19/21 09/03/24 Unknown Rx acetaminophen 650 mg 1,300 mg PO Q8H 07/10/22 09/03/24 Unknown History tablet,extended release (Tylenol 8 Hour) montelukast 10 mg tablet 10 mg PO DAILY COPD #90 tabs 10/09/23 09/03/24 Unknown Rx (Singulair) metoprolol tartrate 50 mg tablet See Rx Instructions .Route 02/19/24 09/03/24 Unknown Rx .COMPLEX #180 tabs atorvastatin 40 mg tablet 40 mg PO DAILY #90 tabs 04/01/24 09/03/24 Unknown Rx amlodipine 5 mg tablet 5 mg PO DAILY #90 tabs 05/06/24 09/03/24 Unknown Rx furosemide 40 mg tablet 40 mg PO DAILY 09/03/24 09/03/24 Unknown History Allergies Allergy/AdvReac Type Severity Reaction Status Date / Time hydrocodone Allergy Mild vomit Verified 09/03/24 06:47 codeine AdvReac Mild sleepiness Verified 09/03/24 06:47 PFSH Acute 2 PFSH: Medical History Elevated TSH Former smoker, stopped smoking in distant past smoked 45 years quit 2005 Allergic rhinitis due to allergen Chronic right shoulder pain 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 PFT: FVC 42%, FeV1 32%, 25-75 13%, Severe COPD with restriction CKD (chronic kidney disease) stage 3, GFR 30-59 ml/min 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 Hyperlipemia Enrolled in chronic care management Obesity (BMI 30.0-34.9) History of stroke Superior mesenteric artery stenosis Atrial fibrillation Essential hypertension CAD (coronary artery disease) History of CABG, stents, remote HI's, aortic valve replacement with bioprosthesis valve CHF (congestive heart failure), NYHA class II Surgical History Hx of CABG Stented coronary artery History of aortic valve replacement with bioprosthetic valve Family History Other CAD (coronary artery disease) Dementia Enrolled in chronic care management Hyperlipidemia Hypertension Lung disease Social History Smoking and tobacco/nicotine status: former use of tobacco/nicotine Second hand smoke exposure: Yes Alcohol intake: former Substance/Drug Use: never Adopted: No Caregiver/support person: No Lives independently: Yes Household members: spouse Marital status: Current occupational status: retired Current gender identity: Male Vitals/I&O/Wt Last Vital Signs Temp 98.0 F 09/03/24 06:49 Pulse 56 L 09/03/24 06:59 Resp 20 H 09/03/24 06:59 BP 172/74 09/03/24 06:59 Pulse Ox 94 09/03/24 06:59 O2 Del Method Room Air 09/03/24 06:59 09/02/24 09/03/24 09/03/24 22:59 06:59 14:59 Intake Total 0 / 0 Balance 0 / 0 Physical Exam 2 Narrative: NIH score= 0 Point of contact glucose Accu-Chek 86. Serum glucose 90. CBC unrevealing. Comprehensive metabolic panel revealed elevated creatinine 1.[address] 09/03/2024 reported to revealed no acute findings. Blood pressure 172/74 heart rate 56 respiration 20 temperature 98 ?F O2 saturation 94% on room air The patient is alert and oriented x 3. Speech fluent. Head normocephalic. Neck supple. Cranial nerves II through XII intact pupils 3 to 4 mm round reactive reactive to light and accommodation extraocular movements intact. Visual frost appear to be full via confrontation. Motor testing 5/5 bilaterally. There was no drift. Deep tendon reflex revealed plantar responses bilaterally. Sensory examination intact to touch. Throat clear. Lungs clear. Heart atrial fibrillation. Extremities were negative for cyanosis. Data 09/03/24 06:46 09/03/24 06:46 A&P Assessment and plan (1) TIA involving left internal carotid artery: Impression: 1. Acute left cerebral TIA manifested as right-sided weakness at approximately 5:45 AM on 09/03/2024 that resolved in the emergency department with NIH score = 0. Therefore patient was not a candidate for intravenous thrombolytics and no intravenous thrombolytics were administered. 2. Atrial fibrillation 3. Coronary artery disease status post coronary artery bypass and stent placement 4. Aortic valve replacement 5. Chronic obstructive pulmonary disease with emphysema 6. Essential hypertension 7. Chronic renal failure 8. History of elevated TSH Plan: 1. Agree with admission to hospital and obtain cardiology evaluation to determine if anticoagulation is required and to determine if alternative medication for hyperlipidemia should be prescribed since patient reported side effects to Lipitor 2. Neurochecks and vital signs per NIH stroke protocol 3. Stroke pamphlet and stroke education 4. Address hypertension 5. Recommend evaluation by Occupational Therapy and physical therapy although patient NIH score = 0 Consult Attestations 2 Medical Necessity Statement: The patient was evaluated by neurology for acute care/code stroke emergency department room #12 Coding Level of Care Code 70939 Diagnoses TIA involving left internal carotid artery G45.1
[2024-09-03 07:34] LABS: Bilirubin Urine Negative (Negative); Blood Urine Negative (Negative); Glucose Urine UA Negative (Normal); Ketones Urine Negative (Negative); Leukocyte Esterase Urine Trace (Negative); Nitrate Urine Negative (Negative); Protein Urine Negative (Negative); Urine Appearance Clear (CLEAR); Urine Color Yellow (Yellow); Urobilinogen Urine 0.2 mg/dL (Negative)
[2024-09-03 07:37] LABS: Add Urine Microscopic? YES; Bacteria Urine None Seen /hpf; Hyaline Casts Urine 4.52 /lpf; RBC Urine 0-2 /hpf (0-2); Squamous Epithelial Cell Urine 0-5 /hpf (0-5); WBC Urine 0-5 /hpf (0-5)
== END 2024-09-03 08:42 | disposition home or self-care (01) ==
PROVIDERS: Emergency Provider Family Medicine; PCP Family Medicine Adult Medicine
DX: G45.9 Transient cerebral ischemic attack, unspecified (principal); I48.0 Paroxysmal atrial fibrillation; Z79.82 Long term (current) use of aspirin; Z87.891 Personal history of nicotine dependence; I25.10 Atherosclerotic heart disease of native coronary artery without angina pectoris; I13.0 Hypertensive heart and chronic kidney disease with heart failure and stage 1 through stage 4 chronic kidney disease, or unspecified chronic kidney disease; I50.9 Heart failure, unspecified; N18.30 Chronic kidney disease, stage 3 unspecified; E78.5 Hyperlipidemia, unspecified
CPT/HCPCS: 36415; 36416; 70450; 80053; 80306; 81001; 82962; 85025; 85610; 85730; 93005; 99284

== ENCOUNTER → 2025-02-19 12:53 | Outpatient (BNVA) | payer MEDICARE, MEDICAID, SELFPAY | PROVIDERS: PCP Family Medicine; Visit Provider Internal Medicine | DX: I12.9 Hypertensive chronic kidney disease with stage 1 through stage 4 chronic kidney disease, or unspecified chronic kidney disease (principal); N18.9 Chronic kidney disease, unspecified; I25.119 Atherosclerotic heart disease of native coronary artery with unspecified angina pectoris; I25.5 Ischemic cardiomyopathy; Z79.82 Long term (current) use of aspirin; Z95.5 Presence of coronary angioplasty implant and graft; Z95.1 Presence of aortocoronary bypass graft; Z95.2 Presence of prosthetic heart valve; Z86.73 Personal history of transient ischemic attack (TIA), and cerebral infarction without residual deficits; R06.02 Shortness of breath; R07.9 Chest pain, unspecified | CPT/HCPCS: 99214 ==

== ENCOUNTER → 2025-04-02 10:30 | Outpatient (BNVA) | payer MEDICARE, MEDICAID, SELFPAY | PROVIDERS: PCP Family Medicine; Visit Provider Family Medicine | DX: N18.31 Chronic kidney disease, stage 3a (principal) | CPT/HCPCS: 80053; 80061; 85025 ==

== ENCOUNTER 2025-05-19 08:26 | Outpatient (CLI) | payer MEDICARE, MEDICAID, SELFPAY ==
--- NOTE | 2025-05-19 07:45 | USCV_ITS ---
Ravi Wesley Age: 80 Gender: M : 1945 Exam Date: 05/19/2025 08:50 Ordering Phys: Edgard Ruelas M.D ([email or web address]) Technologist: Exam Location: [facility] [place] Indication: ao pros BP: 140 / 70 HR: 66 Rhythm: Sinus Technical Quality: Adequate MEASUREMENTS (Male / Female) Normal Values 2D ECHO LV Diastolic Diameter PLAX 4.3 cm 4.2 - 5.9 / 3.9 - 5.3 cm IVS Diastolic Thickness 1.2 cm 0.6 - 1.0 / 0.6 - 0.9 cm IVS Systolic Thickness 2.0 cm LVPW Diastolic Thickness 1.2 cm 0.6 - 1.0 / 0.6 - 0.9 cm LVPW Systolic Thickness 1.8 cm LV Ejection Fraction 2D Teich 62.7 % LV Ejection Fraction MOD 4C 67.0 % LV Ejection Fraction MOD 2C 45.8 % LV Ejection Fraction 2C AL 46.2 % RA Systolic Volume 4C AL 47.7 ml RA Systolic Volume 4C MOD 43.8 ml LA Sys Volume AL 88.0 cm cubed LA Sys Volume Index AL 40.7 cm cubed/m squared IVC Diameter 2.4 cm M-MODE LA Ao Ratio MM 1.2 AV Cusp Separation MM 2.0 cm DOPPLER AV Peak Velocity 205.3 cm/s MV Peak Velocity 149.0 cm/s MV Area PHT 4.5 cm squared Mitral E to A Ratio 0.9 TR Peak Velocity 111.0 cm/s TR Peak Gradient 4.9 mmHg TV Peak E Velocity 85.0 cm/s PV Peak Velocity 111.0 cm/s FINDINGS Left Ventricle Normal left ventricular size and systolic function, EF 55-60%. No regional wall motion abnormalities. Right Ventricle Normal in size and function Right Atrium Normal in size Left Atrium Dilated IA Septum Grossly normal Mitral Valve Mild mitral annular calcification. Mild mitral regurgitation. Aortic Valve Bioprosthetic aortic valve. No significant stenosis. Tricuspid Valve Insufficient TR jet to calculate RVSP Pulmonic Valve Mild pulmonic regurgitation. Pericardium Normal Aorta Normal in size IVC Dilated CONCLUSIONS LV systolic function is normal with EF of 55-60% Left atrial dilation Mild mitral regurgitation Bioprosthetic aortic valve seen. No significant stenosis. IVC is dilated Compared to prior echocardiogram from 2023, no significant changes are seen Edgard Ruelas MD (Electronically Signed) Final Date: 24 May 2025 13:25 S
== END 2025-05-19 08:27 | disposition home or self-care (01) ==
LOC: RAD 08:30
PROVIDERS: PCP Family Medicine; Visit Provider Internal Medicine
DX: R07.9 Chest pain, unspecified (principal); R06.02 Shortness of breath; N18.32 Chronic kidney disease, stage 3b; I51.7 Cardiomegaly; I34.0 Nonrheumatic mitral (valve) insufficiency; Z95.2 Presence of prosthetic heart valve
CPT/HCPCS: 80048; 93306